=== PATIENT | female | born 1995 | race Caucasian/White ===

== ENCOUNTER 2022-10-17 18:38 | Emergency (ER) | payer SELFPAY ==
[2022-10-17 18:45] VITALS: BMI 22.4
[2022-10-17 18:52] VITALS: BP 146/88; PULSE 81; RESP 17; TEMP 36.7; O2SAT 98
--- NOTE | 2022-10-17 18:56 | W.ED.SKABFB ---
HPI - Skin/Abscess/Foreign Bdy General: Chief complaint: Skin/Abscess/Foreign Body Stated complaint: syst on right breast Time Seen by Provider: 10/17/22 18:53 History of Present Illness: 27-year-old female comes care today for concerns of cyst to the right breast. Patient reports previous history of cyst which she has had to have drained in the past. Patient reports that is increasing swelling and she is concerned that she needs to have treatment of the cyst. Patient is from [place] and has recently come to visit with her mother in the local area. Patient reports that she will be in the area until at least December. Patient appears nontoxic. Patient appears in no pain. Review of Systems Skin/Breast: Reports: skin swelling Physical Exam Const: COMMON NORMALS: alert HENMT: COMMON NORMALS: normocephalic HEAD & SCALP: normocephalic Neck/C-Spine: COMMON NORMALS: full ROM Chest: BREAST/AXILLA PALPATION: Yes other (Mobile cystic mass 9:00 4 cm outer edge of areola) OTHER: No redness or significant swelling is noted to the breast. Resp: COMMON NORMALS: normal respiratory effort Cardio: COMMON NORMALS: regular rate RATE: regular rate Extremity: COMMON NORMALS: full ROM Neuro: SENSORIUM/ORIENTATION: Yes alert Skin: COMMON NORMALS: turgor normal GENERAL SKIN EXAM: turgor normal Course Vital Signs: Vital signs: Vital Signs Temperature 98.1 F 10/17/22 18:52 Pulse Rate 81 10/17/22 18:52 Respiratory Rate 17 10/17/22 18:52 Blood Pressure 146/88 10/17/22 18:52 Pulse Oximetry 98 10/17/22 18:52 Oxygen Delivery Me thod Room Air 10/17/22 18:52 MDM - Skin/Abscess/Foreign Bdy Medicial Decision Making Patient came in today for concerns of palpable mass to the right breast. On exam I note a freely mobile mass at approximately 4 cm from the edge of the areola at the 9 o'clock position. No redness or significant tenderness is noted. Differential diagnosis includes inclusion of cyst, breast carcinoma, fibrocystic breast disease. No signs of severe illness or injury is noted. Recommend follow-up with specialist for further evaluation and treatment. Case management was requested for patient to have follow-up appointment. Patient reported understanding and agreed to plan. Discharge Plan Discharge Patient Disposition: Home Clinical Impression: Cyst of right breast Condition: Stable Discharge Orders: Discharge ED (Routine); Ordered 10/17/22 Ordered By: Willis Jin Discharge Diet: Usual diet Discharge Activity: Increase activity as tolerated Patient Instructions: Fibrocystic Breast Changes (ED) Activity Restrictions/Additional Instructions: Case management will contact you for follow-up appointment with specialist for further evaluation and treatment of cyst to the right breast. Return to the ER for increased redness, fever, or new concerns. 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
--- NOTE | 2022-10-20 10:07 | DCPLANNER ---
Addendum entered by Nazia Manuel 10/29/22 11:18: manager audit received the following message from general surgery regarding follow up appointment: patient declined On 10/27/22 @ 12:40 Angel Calvert Wrote To General Surgery Front Off left message 10/27 Original Note: manager audit had message to schedule a follow up appointment for patient with general surgery. manager audit sent patients information to the front office staff at general surgery. Patients information will be printed and reviewed. Clinic will call patient with appointment information.
== END 2022-10-17 19:11 | disposition home or self-care (01) ==
PROVIDERS: Emergency Provider Nurse Practitioner Family
DX: N60.01 Solitary cyst of right breast (principal)
CPT/HCPCS: 99281